=== PATIENT | female | born 1960 | race Caucasian/White ===

== ENCOUNTER → 2019-01-27 | Outpatient (CLI) | payer OTHER ==
--- NOTE | 2019-01-27 10:48 | Diagnostic Imaging Report ---
TECHNIQUE: Magnetic resonance imaging of the LEFT KNEE was performed WITHOUT injected contrast. HISTORY: TEAR OF MEDIAL MENISCUS LT KNEE , walking, heard "chrunch", pain across front of the COMPARISON: None available. FINDINGS: LIGAMENTS AND TENDONS: ACL: Intact, mild intrasubstance degeneration of the posterolateral band. PCL: Intact Collateral ligaments: Intact Iliotibial band: Unremarkable Popliteal tendon: Intact Extensor mechanism: Intact JOINT: Menisci: Medial: Severe complex tearing and attenuation of the posterior horn near the root attachment, results in near complete transection in mild peripheral extrusion of the body. Lateral: Intact Articular Cartilage: Medial Compartment: High-grade erosion of the weightbearing cartilage. Lateral Compartment: Low-grade erosion of the weightbearing cartilage. Patellofemoral Compartment: Diffuse erosion, most notably high-grade near the junction of the patellar apex and lateral facet. Joint Fluid: Synovitis and trace effusion. BONES: No focal or infiltrative bone marrow replacing abnormality. Peripheral reactive subchondral bone marrow edema of the anterior aspect of the medial tibial plateau. SOFT TISSUES: Nonspecific anterior soft tissue edema. IMPRESSION: 1. Medial and patellofemoral compartment degenerative changes, including degenerative tearing of the posterior root of the medial meniscus. 2. Associated reactive subchondral bone marrow edema versus contusion of the medial tibial plateau and reactive synovitis. Signed by: Dr. Ramesh Zuleta D.O., M.M.M. on 01/27/2019 10:44 AM
== END ==
LOC: MRI 07:32
PROVIDERS: ATTEND Specialist
DX: S83.242A Other tear of medial meniscus, current injury, left knee, initial encounter (principal)